=== PATIENT | female | born 1990 | race Caucasian/White ===

== ENCOUNTER 2017-09-17 11:58 | Emergency (ER) | payer OTHER ==
[2017-09-17 12:45] VITALS: O2SAT 100
--- NOTE | 2017-09-17 15:12 | RAD ---
HISTORY: midchest pain COMPARISON: No prior. TECHNIQUE: Chest PA and lateral FINDINGS: LUNGS: No active pulmonary disease. PLEURA: No significant pleural effusion identified. No pneumothorax apparent. CARDIOVASCULAR: Normal. OSSEOUS STRUCTURES: No significant abnormalities. VISUALIZED UPPER ABDOMEN: Normal. OTHER FINDINGS: None. IMPRESSION: No active disease.
--- NOTE | 2017-09-17 16:07 | C.PDOC ---
History Of Present Illness Anna Toribio is a 27 year old female, with no past medical history, who presents to the emergency department complaining of intermittent chest pain onset for the past x6 months. Patient states she attempted to visit the ER twice but left without being seen. She is not using control pills. She denies any fever, chills, nausea, vomit or shortness of breath. No further medical complaints. PMD: None provided. Time Seen by Provider: 09/17/17 13:12 Chief Complaint (Nursing): Chest Pain History Per: Patient History/Exam Limitations: no limitations Onset/Duration Of Symptoms: Days (x6 months), Intermittent Episodes Current Symptoms Are (Timing): Still Present Quality: "Pain" Associated Symptoms: denies: Dyspnea Past Medical History Reviewed: Historical Data, Nursing Documentation, Vital Signs Vital Signs: Last Vital Signs Temp 99.2 F 09/17/17 16:53 Pulse 88 09/17/17 16:53 Resp 20 09/17/17 16:53 BP 114/79 09/17/17 16:53 Pulse Ox 100 09/17/17 16:53 - Medical History PMH: No Chronic Diseases Surgical History: No Surg Hx Family History: States: Unknown Family Hx - Social History Hx Tobacco Use: Yes (light smoker <10 cigarettes) Hx Alcohol Use: No Hx Substance Use: No - Immunization History Hx Influenza Vaccination: No Review Of Systems Except As Marked, All Systems Reviewed And Found Negative. Constitutional: Negative for: Fever, Chills Cardiovascular: Positive for: Chest Pain (intermittent) Respiratory: Negative for: Shortness of Breath Gastrointestinal: Negative for: Nausea, Vomiting Physical Exam - Physical Exam Appears: No Acute Distress Skin: Normal Color, Warm, Dry Head: Atraumatic, Normacephalic Eye(s): bilateral: Normal Inspection Neck: Normal ROM Chest: Tenderness (to anterior chest with palpation) Cardiovascular: Rhythm Regular, No Murmur Respiratory: Normal Breath Sounds (clear b/l), No Wheezing Gastrointestinal/Abdominal: Normal Exam, Soft, No Tenderness Back: Normal Inspection, No CVA Tenderness, No Vertebral Tenderness, No Paraspinal Tenderness Extremity: Normal ROM, No Pedal Edema, No Deformity, No Swelling Neurological/Psych: Oriented x3 (awake) ED Course And Treatment ECG Rhythm: Sinus Tachycardia ECG Interpretation: No Acute Changes Rate From EC O2 Sat by Pulse Oximetry: 100 (RA) Pulse Ox Interpretation: Normal - Radiology CXR: Interpreted by Me CXR Interpretation: Yes: No Acute Disease Progress Note: Initial Plan: --EKG. --Drug screen, urine. --HCG, Qualitative Urine. --Chest two views (PA/LAT) [RAD]. --Urinalysis. On re-exam patient feels better, denies SOB, afebrile, no more thachycardia. Family at bedside, patient was instrcuted to follow up in Clinic and to return to ED immediately if she feels worse. Medical Decision Making Medical Decision Makin:10 Chest X-Ray FINDINGS: LUNGS: No active pulmonary disease. PLEURA: No significant pleural effusion identified. No pneumothorax apparent. CARDIOVASCULAR: Normal. OSSEOUS STRUCTURES: No significant abnormalities. VISUALIZED UPPER ABDOMEN: Normal. OTHER FINDINGS: None. IMPRESSION: No active disease. Disposition - Disposition Referrals: [facility] [Outside] Disposition: HOME/ ROUTINE Disposition Time: 16:50 Condition: STABLE Additional Instructions: Follow up in Clinic within 2-3 days. Return to ED if feel worse. Prescriptions: Ibuprofen [Motrin Tab] 600 mg PO Q8 #30 tab Instructions: Chest Wall Pain (ED) Forms: [facility] (Malay), Work Excuse - Clinical Impression Clinical Impression: Chest wall pain - Scribe Statement Gato Perez All medical record entries made by the Scribe were at my direction and personally dictated by me. I have reviewed the chart and agree that the record accurately reflects my personal performance of the history, physical exam, medical decision making, and the department course for this patient. I have also personally directed, reviewed, and agree with the discharge instructions and disposition.
[2017-09-17 16:24] LABS: SQUAMOUS EPITHIAL 1 /hpf (0-5); URINE BACTERIA RARE (<OCC); URINE BILIRUBIN NEGATIVE (NEGATIVE); URINE BLOOD NEGATIVE (NEGATIVE); URINE CLARITY Clear (Clear); URINE COLOR Yellow (YELLOW); URINE GLUCOSE (UA) NORMAL (Normal); URINE LEUKOCYTE ESTERASE NEG Leu/uL (Negative); URINE NITRATE NEGATIVE (NEGATIVE); URINE PROTEIN NEGATIVE (NEGATIVE)
[2017-09-17 16:26] LABS: BARBITURATES, UR NEGATIVE (NEGATIVE); BENZODIAZEPINES, UR NEGATIVE (NEGATIVE); OPIATES, UR NEGATIVE (NEGATIVE); PHENCYCLIDINE, UR NEGATIVE (NEGATIVE)
[2017-09-17 16:30] LABS: HCG,QUALITATIVE URINE NEGATIVE (NEGATIVE)
[2017-09-17 16:53] VITALS: BP 114/79; PULSE 88; RESP 20; TEMP 99.2
--- NOTE | 2017-09-19 23:35 | CARD ---
APPROVED REPORT EKG Measurement Heart [id number] <Conclusion> Sinus tachycardia Nonspecific T wave abnormality Abnormal ECG
== END 2017-09-17 17:12 | disposition home or self-care (01) ==
LOC: C.ER 11:58
DX: R07.89 Other chest pain (principal)

== ENCOUNTER 2017-09-21 13:58 | Inpatient (IN) | payer OTHER ==
[2017-09-21] MEDS ORDERED: Sodium Chloride 0.9% 1,000 ML IV ONE (15:28)
--- NOTE | 2017-09-21 15:58 | C.PDOC ---
History Of Present Illness 27 y/o female sent to ED from clinic for hemoglobin of 7.1. Patient was seen on 09/17 and did not have blood work done, mother called complaining that blood work was not done for patient and was told to go to clinic to have blood work done. Patient went yesterday to clinic and was told to come to ED for repeat blood work. Lexii states she occasionally feels dizzy and sob but is asymptomatic at ED. No other complaints at this time. Time Seen by Provider: 09/21/17 15:24 Chief Complaint (Nursing): Abnormal Labs History Per: Patient History/Exam Limitations: no limitations Onset/Duration Of Symptoms: Days Current Symptoms Are (Timing): Still Present Past Medical History Reviewed: Historical Data, Nursing Documentation, Vital Signs Vital Signs: Last Vital Signs Temp 98.8 F 09/21/17 15:09 Pulse 91 H 09/21/17 15:09 Resp 20 09/21/17 15:09 BP 113/70 09/21/17 15:09 Pulse Ox 100 09/21/17 18:23 - Medical History PMH: Anemia Surgical History: No Surg Hx Family History: States: No Known Family Hx - Social History Hx Tobacco Use: Yes (light smoker <10 cigarettes) Hx Alcohol Use: Yes Hx Substance Use: Yes (marijuana) - Immunization History Hx Tetanus Toxoid Vaccination: No Hx Influenza Vaccination: No Hx Pneumococcal Vaccination: No Review Of Systems Constitutional: Negative for: Fever, Chills Cardiovascular: Negative for: Chest Pain Respiratory: Negative for: Shortness of Breath Gastrointestinal: Negative for: Nausea, Vomiting Skin: Negative for: Rash Neurological: Negative for: Weakness, Numbness, Dizziness Physical Exam - Physical Exam Appears: Non-toxic, No Acute Distress Skin: Warm, Dry, No Rash Head: Atraumatic, Normacephalic Eye(s): bilateral: Normal Inspection Oral Mucosa: Moist Neck: Normal ROM, Supple Cardiovascular: Rhythm Regular Respiratory: Normal Breath Sounds, No Rales, No Rhonchi, No Wheezing Gastrointestinal/Abdominal: Soft, No Tenderness, No Guarding, No Rebound Extremity: Normal ROM, Capillary Refill (<2 seconds) Neurological/Psych: Oriented x3 ED Course And Treatment - Laboratory Results Result Diagrams: 09/21/17 16:26 09/21/17 16:26 Lab Interpretation: Normal Urine POC: Negative ECG: Interpreted By Me ECG Rhythm: Sinus Rhythm Rate From EC O2 Sat by Pulse Oximetry: 100 (RA) Pulse Ox Interpretation: Normal Progress Note: Patient refused rectal exam. Admitted in stable condition in no distress Reassessment Condition: Unchanged - Physician Consult Information Physician Contacted: Chucky Trinidad Outcome Of Conversation: admit Medical Decision Making Medical Decision Making: Patient sent from [facility] for symptomatic anemia Hgb 7.1 denies vaginal or rectal bleeding Consult with Dr Bailon ordered Disposition Discussed With Dr.: Chucky Trinidad Doctor Will See Patient In The: Hospital Counseled Patient/Family Regarding: Studies Performed - Disposition Disposition: HOSPITALIZED Disposition Time: 18:30 Condition: STABLE - POA Present On Arrival: None - Clinical Impression Clinical Impression: Anemia - PA / PENETRATION TESTER / Resident Statement MD/DO has reviewed & agrees with the documentation as recorded. - Scribe Statement The provider has reviewed the documentation as recorded by the Scribe Amy Aguilar All medical record entries made by the Scribe were at my direction and personally dictated by me. I have reviewed the chart and agree that the record accurately reflects my personal performance of the history, physical exam, medical decision making, and the department course for this patient. I have also personally directed, reviewed, and agree with the discharge instructions and disposition. Decision To Admit - Pt Status Changed To: Hospital Disposition Of: Inpatient - Admit Certification Admit to Inpatient:: After my assessment, the patient will require hospitalization for at least two midnights. This is because of the severity of symptoms shown, intensity of services needed, and/or the medical risk in this patient being treated as an outpatient. - InPatient: Physician Admission Certification: I certify that this patient requires 2 or more midnights of care for the following reason:: symptomatic Anemia - . Bed Request Type: Regular Admitting Physician: Chucky Trinidad Patient Diagnosis: Anemia
[2017-09-21] MEDS ORDERED: Sodium Chloride 0.9% 1,000 ML ONE (16:04)
[2017-09-21 16:36] LABS: BASO # 0.1 K/uL (0.0-0.2); BASO % 1.4 % (0.0-2.0); EOS # 0.1 K/uL (0.0-0.7); EOS % 1.3 % (0.0-4.0); HEMOGLOBIN 7.1 g/dL (11.0-16.0); LYMPH # 3.3 K/uL (1.0-4.3); LYMPH % 50.8 % (20.0-40.0); MEAN CELL VOLUME 67.2 fL (81.0-99.0); MEAN CORPUSCULAR HEMOGLOBIN 19.8 pg (27.0-31.0); MEAN CORPUSCULAR HGB CONC 29.5 g/dL (33.0-37.0); MEAN PLATELET VOLUME 10.3 fL (7.2-11.7); MONO # 0.3 K/uL (0.0-0.8); MONO % 4.7 % (0.0-10.0); NEUT # 2.7 K/uL (1.8-7.0); NEUT % 41.8 % (50.0-75.0); NRBC % 0.1 % (0.0-2.0); RBC 3.59 Mil/uL (3.80-5.20); RED CELL DISTRIBUTION WIDTH 19.1 % (11.5-14.5); WHITE BLOOD COUNT 6.6 K/uL (4.8-10.8)
[2017-09-21 17:12] LABS: PROTHROMBIN TIME 11.5 SECONDS (9.7-12.2)
[2017-09-21 17:22] LABS: ALBUMIN 4.1 g/dL (3.5-5.0); ALT/SGPT 26 U/L (9-52); AST/SGOT 26 U/L (14-36); BLOOD UREA NITROGEN 7 mg/dL (7-17); CALCIUM 8.5 mg/dl (8.6-10.4); GFR AFRICAN-AMERICAN > 60; GFR NON-AFRICAN AMERICAN > 60
[2017-09-21 17:39] LABS: SQUAMOUS EPITHIAL 1 /hpf (0-5); URINE BILIRUBIN NEGATIVE (NEGATIVE); URINE BLOOD NEGATIVE (NEGATIVE); URINE CLARITY Clear (Clear); URINE COLOR Yellow (YELLOW); URINE GLUCOSE (UA) NORMAL (Normal); URINE LEUKOCYTE ESTERASE NEG Leu/uL (Negative); URINE NITRATE NEGATIVE (NEGATIVE); URINE PROTEIN NEGATIVE (NEGATIVE)
[2017-09-21 17:51] LABS: HCG,QUALITATIVE URINE NEGATIVE (NEGATIVE)
--- NOTE | 2017-09-21 20:33 | CP.PCM.HP ---
History of Present Illness - History of Present Illness History of Present Illness: 27 y/o female sent to ED from clinic for hemoglobin of 7.1. Patient was seen on 09/17 and did not have blood work done, Patient went yesterday to clinic and was told to come to ED for repeat blood work. Lexii states she occasionally feels dizzy and sob but is asymptomatic at ED. No other complaints at this time. Present on Admission - Present on Admission Any Indicators Present on Admission: No Review of Systems - Review of Systems All systems: reviewed and no additional remarkable complaints except (FATIGUE AND TIREDNESS) Past Patient History - Past Social History Smoking Status: Light Smoker < 10 Cigarettes Daily - HEMATOLOGICAL/ONCOLOGICAL Hx Anemia: Yes - PSYCHIATRIC Hx Substance Use: Yes (marijuana) - SURGICAL HISTORY Hx Surgeries: No Meds Allergies/Adverse Reactions: Allergies Allergy/AdvReac Type Severity Reaction Status Date / Time No Known Allergies Allergy Verified 09/21/17 15:12 Physical Exam - Head Exam Head Exam: ATRAUMATIC, NORMAL INSPECTION, NORMOCEPHALIC - ENT Exam ENT Exam: Mucous Membranes Moist, Normal Exam - Neck Exam Neck exam: Positive for: Normal Inspection - Respiratory Exam Respiratory Exam: Clear to Auscultation Bilateral, NORMAL BREATHING PATTERN - Cardiovascular Exam Cardiovascular Exam: REGULAR RHYTHM - GI/Abdominal Exam GI & Abdominal Exam: Normal Bowel Sounds, Soft. absent: Tenderness - Rectal Exam Rectal Exam: Deferred - Extremities Exam Extremities exam: Positive for: normal inspection - Back Exam Back exam: NORMAL INSPECTION - Neurological Exam Neurological exam: Alert, CN II-XII Intact, Normal Gait, Oriented x3, Reflexes Normal - Skin Skin Exam: Pallor Results - Vital Signs Recent Vital Signs: Last Vital Signs Temp 98.8 F 09/21/17 15:09 Pulse 91 H 09/21/17 15:09 Resp 20 09/21/17 15:09 BP 113/70 09/21/17 15:09 Pulse Ox 100 09/21/17 18:57 - Labs Result Diagrams: 09/21/17 16:26 09/21/17 16:26 Labs: Laboratory Results - last 24 hr 09/21/17 09/21/17 09/21/17 16:26 16:26 16:26 WBC 6.6 RBC 3.59 L Hgb 7.1 L Hct 24.1 L MCV 67.2 L MCH 19.8 L MCHC 29.5 L RDW 19.1 H Plt Count 245 MPV 10.3 Neut % (Auto) 41.8 L Lymph % (Auto) 50.8 H [place] % (Auto) 4.7 Eos % (Auto) 1.3 Baso % (Auto) 1.4 Neut # 2.7 Lymph # 3.3 [place] # 0.3 Eos # 0.1 Baso # 0.1 PT 11.5 INR 1.0 Sodium 135 Potassium 4.3 Chloride 101 Carbon Dioxide 26 Anion Gap 12 BUN 7 Creatinine 0.7 Est GFR ( Amer) > 60 Est GFR (Non-Af Amer) > 60 Random Glucose 90 Calcium 8.5 L Total Bilirubin 0.8 AST 26 ALT 26 Alkaline Phosphatase 73 Total Protein 8.3 Albumin 4.1 Globulin 4.2 H Albumin/Globulin Ratio 1.0 Urine Color Urine Clarity Urine pH Ur Specific [place] Urine Protein Urine Glucose (UA) Urine Ketones Urine Blood Urine Nitrate Urine Bilirubin Urine Urobilinogen Ur Leukocyte Esterase Urine WBC (Auto) Urine RBC (Auto) Ur Squamous Epith Cells Urine HCG, Qual Blood Type Antibody Screen 09/21/17 09/21/17 16:26 17:27 WBC RBC Hgb Hct MCV MCH MCHC RDW Plt Count MPV Neut % (Auto) Lymph % (Auto) [place] % (Auto) Eos % (Auto) Baso % (Auto) Neut # Lymph # [place] # Eos # Baso # PT INR Sodium Potassium Chloride Carbon Dioxide Anion Gap BUN Creatinine Est GFR ( Amer) Est GFR (Non-Af Amer) Random Glucose Calcium Total Bilirubin AST ALT Alkaline Phosphatase Total Protein Albumin Globulin Albumin/Globulin Ratio Urine Color Yellow Urine Clarity Clear Urine pH 7.0 Ur Specific [place] 1.015 Urine Protein Negative Urine Glucose (UA) Normal Urine Ketones Negative Urine Blood Negative Urine Nitrate Negative Urine Bilirubin Negative Urine Urobilinogen 2.0 H Ur Leukocyte Esterase Neg Urine WBC (Auto) < 1 Urine RBC (Auto) < 1 Ur Squamous Epith Cells 1 Urine HCG, Qual Negative Blood Type B POSITIVE Antibody Screen Negative Assessment & Plan (1) Anemia Status: Acute Comment: ETIOLOGY TO BE DETERMINED (2) Chest wall pain Status: Acute
[2017-09-21 23:32] LABS: FERRITIN 4.9 ng/mL
[2017-09-22 00:03] LABS: FOLATE 10.6 ng/mL
[2017-09-22 05:04] LABS: BASO # 0.1 K/uL (0.0-0.2); BASO % 1.2 % (0.0-2.0); EOS # 0.1 K/uL (0.0-0.7); LYMPH # 2.8 K/uL (1.0-4.3); LYMPH % 49.4 % (20.0-40.0); MEAN CELL VOLUME 70.6 fL (81.0-99.0); MEAN CORPUSCULAR HEMOGLOBIN 21.3 pg (27.0-31.0); MEAN CORPUSCULAR HGB CONC 30.1 g/dL (33.0-37.0); MEAN PLATELET VOLUME 9.2 fL (7.2-11.7); MONO # 0.4 K/uL (0.0-0.8); MONO % 6.8 % (0.0-10.0); NEUT # 2.3 K/uL (1.8-7.0); NEUT % 40.6 % (50.0-75.0); NRBC % 0.1 % (0.0-2.0); RBC 3.78 Mil/uL (3.80-5.20); RED CELL DISTRIBUTION WIDTH 21.4 % (11.5-14.5); WHITE BLOOD COUNT 5.7 K/uL (4.8-10.8)
--- NOTE | 2017-09-22 12:37 | CARD ---
APPROVED REPORT EKG Measurement Heart [id number] <Conclusion> Normal sinus rhythm Possible Left atrial enlargement Borderline ECG
--- NOTE | 2017-09-22 13:22 | CP.PCM.CON ---
History of Present Illness - History of Present Illness History of Present Illness: 27 year old female with no past medical history, admitted with symptomatic anemia. The patient notes she has been more fatigued with intermittent episodes of dizziness. She underwent blood work with her PMD who found her to be anemic and told her to come to the hospital. In the ER she was found to have a hgb of 7.1. She is s/p 2U PRBC and notes to feeling better but still had an episode of dizziness this morning. She denies abnormal bleeding and bruising. She denies heavy periods. She does note to frequent episodes of chest pain for which she is supposed to have a stress test as an outpatient tomorrow. Past medical history: None Past surgical history: None Family history: Niece has leukemia Social history: Smokes marijuana Allergies: NKA Review of systems: All remaining review of systems including HEENT, cardiovascular, respiratory, gastrointestinal , genitourinary, musculoskeletal, dermatologic, neurologic, and psychiatric are negative unless mentioned in the HPI. Past Patient History - Past Medical History & Family History Past Medical History?: Yes - Past Social History Smoking Status: Light Smoker < 10 Cigarettes Daily - HEMATOLOGICAL/ONCOLOGICAL Hx Anemia: Yes - PSYCHIATRIC Hx Substance Use: Yes (marijuana) - SURGICAL HISTORY Hx Surgeries: No Meds Allergies/Adverse Reactions: Allergies Allergy/AdvReac Type Severity Reaction Status Date / Time No Known Allergies Allergy Verified 09/21/17 15:12 Physical Exam - Head Exam Head Exam: ATRAUMATIC - Eye Exam Eye Exam: Normal appearance - ENT Exam ENT Exam: Mucous Membranes Dry - Respiratory Exam Respiratory Exam: NORMAL BREATHING PATTERN - Cardiovascular Exam Cardiovascular Exam: +S1, +S2 - GI/Abdominal Exam GI & Abdominal Exam: Normal Bowel Sounds - Extremities Exam Extremities exam: Positive for: normal inspection - Neurological Exam Neurological exam: Oriented x3 - Psychiatric Exam Psychiatric exam: Normal Affect, Normal Mood - Skin Skin Exam: Warm Results - Vital Signs Recent Vital Signs: Last Vital Signs Temp 98.2 F 09/22/17 08:09 Pulse 78 09/22/17 08:09 Resp 18 09/22/17 08:09 BP 115/67 09/22/17 08:09 Pulse Ox 100 09/22/17 08:09 - Labs Result Diagrams: 09/22/17 04:59 09/21/17 16:26 Labs: Laboratory Results - last 24 hr 0109/21/17 09/21/17 16:26 16:26 16:26 WBC 6.6 RBC 3.59 L Hgb 7.1 L Hct 24.1 L MCV 67.2 L MCH 19.8 L MCHC 29.5 L RDW 19.1 H Plt Count 245 MPV 10.3 Neut % (Auto) 41.8 L Lymph % (Auto) 50.8 H [place] % (Auto) 4.7 Eos % (Auto) 1.3 Baso % (Auto) 1.4 Neut # 2.7 Lymph # 3.3 [place] # 0.3 Eos # 0.1 Baso # 0.1 Retic Count Sickle Cell Screen PT 11.5 INR 1.0 Sodium 135 Potassium 4.3 Chloride 101 Carbon Dioxide 26 Anion Gap 12 BUN 7 Creatinine 0.7 Est GFR ( Amer) > 60 Est GFR (Non-Af Amer) > 60 Random Glucose 90 Calcium 8.5 L Ferritin Total Bilirubin 0.8 AST 26 ALT 26 Alkaline Phosphatase 73 Total Protein 8.3 Albumin 4.1 Globulin 4.2 H Albumin/Globulin Ratio 1.0 Vitamin B12 Folate Urine Color Urine Clarity Urine pH Ur Specific [place] Urine Protein Urine Glucose (UA) Urine Ketones Urine Blood Urine Nitrate Urine Bilirubin Urine Urobilinogen Ur Leukocyte Esterase Urine WBC (Auto) Urine RBC (Auto) Ur Squamous Epith Cells Urine HCG, Qual Blood Type Blood Type Confirm Antibody Screen 09/21/17 09/21/17 09/21/17 16:26 17:27 22:27 WBC RBC Hgb Hct MCV MCH MCHC RDW Plt Count MPV Neut % (Auto) Lymph % (Auto) [place] % (Auto) Eos % (Auto) Baso % (Auto) Neut # Lymph # [place] # Eos # Baso # Retic Count Sickle Cell Screen Negative PT INR Sodium Potassium Chloride Carbon Dioxide Anion Gap BUN Creatinine Est GFR ( Amer) Est GFR (Non-Af Amer) Random Glucose Calcium Ferritin Total Bilirubin AST ALT Alkaline Phosphatase Total Protein Albumin Globulin Albumin/Globulin Ratio Vitamin B12 Folate Urine Color Yellow Urine Clarity Clear Urine pH 7.0 Ur Specific [place] 1.015 Urine Protein Negative Urine Glucose (UA) Normal Urine Ketones Negative Urine Blood Negative Urine Nitrate Negative Urine Bilirubin Negative Urine Urobilinogen 2.0 H Ur Leukocyte Esterase Neg Urine WBC (Auto) < 1 Urine RBC (Auto) < 1 Ur Squamous Epith Cells 1 Urine HCG, Qual Negative Blood Type B POSITIVE Blood Type Confirm B POSITIVE Antibody Screen Negative 09/21/17 09/21/17 09/22/17 22:27 22:41 04:59 WBC 5.7 RBC 3.78 L Hgb 8.0 L Hct 26.7 L MCV 70.6 L D MCH 21.3 L MCHC 30.1 L RDW 21.4 H Plt Count 200 MPV 9.2 Neut % (Auto) 40.6 L Lymph % (Auto) 49.4 H [place] % (Auto) 6.8 Eos % (Auto) 2.0 Baso % (Auto) 1.2 Neut # 2.3 Lymph # 2.8 [place] # 0.4 Eos # 0.1 Baso # 0.1 Retic Count 2.0 H Sickle Cell Screen PT INR Sodium Potassium Chloride Carbon Dioxide Anion Gap BUN Creatinine Est GFR ( Amer) Est GFR (Non-Af Amer) Random Glucose Calcium Ferritin 4.9 Total Bilirubin AST ALT Alkaline Phosphatase Total Protein Albumin Globulin Albumin/Globulin Ratio Vitamin B12 376 Folate 10.6 Urine Color Urine Clarity Urine pH Ur Specific [place] Urine Protein Urine Glucose (UA) Urine Ketones Urine Blood Urine Nitrate Urine Bilirubin Urine Urobilinogen Ur Leukocyte Esterase Urine WBC (Auto) Urine RBC (Auto) Ur Squamous Epith Cells Urine HCG, Qual Blood Type Blood Type Confirm Antibody Screen Assessment & Plan (1) Anemia Assessment and Plan: work up consistente with iron deficiency anemia; low ferritin s/p 2U PRBC, will transfuse 1 additional unit PRBC today will start IV ferrlecit denies heavy periods, f/u FOBT Thank you for this interesting consult. Status: Acute
[2017-09-22] MEDS ORDERED: Ferric Sodium Gluconat Complex 62.5 mg/5 ml Vial IVPB SCH ×2 (13:30→17:00)
--- NOTE | 2017-09-22 13:34 | CP.PCM.PN ---
Subjective - Date & Time of Evaluation Date of Evaluation: 09/22/17 Time of Evaluation: 13:33 - Subjective Subjective: S/P 2 PC , HG 8.0 WITH SYMPTOMS ONE MORE UNIT PC TODAY IV FERRICILT Objective - Vital Signs/Intake and Output Vital Signs (last 24 hours): Temp Pulse Resp BP Pulse Ox 98.2 F 78 18 115/67 100 09/22/17 08:09 09/22/17 08:09 09/22/17 08:09 09/22/17 08:09 09/22/17 08:09 - Medications Medications: Current Medications Acetaminophen (Tylenol 325mg Tab) 650 mg PO ONCE ONE Stop: 09/22/17 13:46 Diphenhydramine HCl (Benadryl) 25 mg PO ONCE ONE Stop: 09/22/17 13:46 Ferric Sodium Gluconate Complex (Ferrlecit) 125 mg IVPB DAILY MAT Stop: 09/29/17 13:31 - Labs Labs: 09/22/17 04:59 09/21/17 16:26 PT 11.5 SECONDS (9.7-12.2) 09/21/17 16:26 INR 1.0 09/21/17 16:26 Assessment and Plan (1) Anemia Status: Acute (2) Chest wall pain Status: Acute
--- NOTE | 2017-09-22 15:15 | CP.PCM.PN ---
Subjective - Date & Time of Evaluation Date of Evaluation: 09/22/17 Time of Evaluation: 15:13 - Subjective Subjective: PT SEEN WITH DR. MULLER THIS AFTERNOON ROUNDS. PENDING IRON AND TIBC RESULTS. PT STILL C/O DIZZINESS AND CRAVING ICE EVEN AFTER TRANSFUSION LAST NIGHT. PLAN IS TO ORDER ANOTHER UNIT PRBC FOR TONIGHT; FERRLICET IV TODAY. REPEAT CBC IN AM AND OK TO D/C HOME PER Amanda MULLER IF HGB IMPROVED. PT TO F/U WITH HIM IN THE OFFICE IN 1 WEEK; HE WILL MONITOR HER IRON AND HGB LEVELS AND GIVE IV INFUSION OUTPATIENT PRN. PT IN AGREEMENT WITH THIS PLAN. NO FURTHER ORDERS. Objective - Vital Signs/Intake and Output Vital Signs (last 24 hours): Temp Pulse Resp BP Pulse Ox 97.9 F 77 20 111/73 100 09/22/17 14:52 09/22/17 14:52 09/22/17 14:52 09/22/17 14:52 09/22/17 08:09 Intake and Output: 09/22/17 09/22/17 06:59 18:59 Intake Total 0 Balance 0 - Medications Medications: Current Medications Ferric Sodium Gluconate Complex (Ferrlecit) 125 mg IVPB DAILY MAT Stop: 09/30/17 17:01 - Labs Labs: 09/22/17 04:59 09/21/17 16:26 PT 11.5 SECONDS (9.7-12.2) 09/21/17 16:26 INR 1.0 09/21/17 16:26
[2017-09-22 15:22] LABS: IRON 28 ug/dL (37-170)
[2017-09-22 15:24] VITALS: RESP 20
[2017-09-22 15:27] LABS: TOTAL IRON BINDING CAPACITY 394 ug/dL (250-450)
[2017-09-22 15:29] LABS: % IRON SATURATION 7 (20-55)
--- NOTE | 2017-09-22 20:55 | CARD ---
APPROVED REPORT EKG Measurement Heart [id number] [place] [id number] <Conclusion> Normal sinus rhythm Normal ECG
[2017-09-23 00:17] VITALS: PULSE 73
[2017-09-23 08:06] VITALS: BP 117/66; TEMP 98.1; O2SAT 96
[2017-09-23] MEDS ORDERED: Ferric Sodium Gluconat Complex 125 MG in Sodium Chloride 0.9% 100 ML IVPB SCH (10:00)
[2017-09-23 10:17] LABS: BASO % 0.6 % (0.0-2.0); EOS # 0.1 K/uL (0.0-0.7); EOS % 0.9 % (0.0-4.0); LYMPH # 2.7 K/uL (1.0-4.3); LYMPH % 36.9 % (20.0-40.0); MEAN CORPUSCULAR HEMOGLOBIN 23.5 pg (27.0-31.0); MEAN CORPUSCULAR HGB CONC 31.9 g/dL (33.0-37.0); MEAN PLATELET VOLUME 10.1 fL (7.2-11.7); MONO # 0.4 K/uL (0.0-0.8); MONO % 5.7 % (0.0-10.0); NEUT # 4.1 K/uL (1.8-7.0); NEUT % 55.9 % (50.0-75.0); RBC 4.25 Mil/uL (3.80-5.20); RED CELL DISTRIBUTION WIDTH 23.7 % (11.5-14.5); WHITE BLOOD COUNT 7.4 K/uL (4.8-10.8)
[2017-09-23 10:20] LABS: MEAN CELL VOLUME 73.7 fL (81.0-99.0)
--- NOTE | 2017-09-23 13:29 | CP.PCM.DIS ---
Provider - Provider Date of Admission: 09/21/17 18:19 Attending physician: Chucky Trinidad MD Time Spent in preparation of Discharge (in minutes): 30 Diagnosis - Discharge Diagnosis (1) Anemia Status: Acute (2) Chest wall pain Status: Acute Hospital Course - Lab Results Lab Results: Most Recent Lab Values WBC 7.4 K/uL (4.8-10.8) 09/23/17 10:08 RBC 4.25 Mil/uL (3.80-5.20) 09/23/17 10:08 Hgb 10.0 g/dL (11.0-16.0) L D 09/23/17 10:08 Hct 31.3 % (34.0-47.0) L 09/23/17 10:08 MCV 73.7 fL (81.0-99.0) L D 09/23/17 10:08 MCH 23.5 pg (27.0-31.0) L 09/23/17 10:08 MCHC 31.9 g/dL (33.0-37.0) L 09/23/17 10:08 RDW 23.7 % (11.5-14.5) H 09/23/17 10:08 Plt Count 195 K/uL (130-400) 09/23/17 10:08 MPV 10.1 fL (7.2-11.7) 09/23/17 10:08 Neut % (Auto) 55.9 % (50.0-75.0) 09/23/17 10:08 Lymph % (Auto) 36.9 % (20.0-40.0) 09/23/17 10:08 Alfalfa % (Auto) 5.7 % (0.0-10.0) 09/23/17 10:08 Eos % (Auto) 0.9 % (0.0-4.0) 09/23/17 10:08 Baso % (Auto) 0.6 % (0.0-2.0) 09/23/17 10:08 Neut # 4.1 K/uL (1.8-7.0) 09/23/17 10:08 Lymph # 2.7 K/uL (1.0-4.3) 09/23/17 10:08 Alfalfa # 0.4 K/uL (0.0-0.8) 09/23/17 10:08 Eos # 0.1 K/uL (0.0-0.7) 09/23/17 10:08 Baso # 0.0 K/uL (0.0-0.2) 09/23/17 10:08 Retic Count 2.0 % (0.5-1.5) H 09/21/17 22:27 Sickle Cell Screen Negative (NEGATIVE) 09/21/17 22:27 PT 11.5 SECONDS (9.7-12.2) 09/21/17 16:26 INR 1.0 09/21/17 16:26 Sodium 135 mmol/L (132-148) 09/21/17 16:26 Potassium 4.3 mmol/L (3.6-5.2) 09/21/17 16:26 Chloride 101 mmol/L (98-107) 09/21/17 16:26 Carbon Dioxide 26 mmol/L (22-30) 09/21/17 16:26 Anion Gap 12 (10-20) 09/21/17 16:26 BUN 7 mg/dL (7-17) 09/21/17 16:26 Creatinine 0.7 mg/dL (0.7-1.2) 09/21/17 16:26 Est GFR ( Amer) > 60 09/21/17 16:26 Est GFR (Non-Af Amer) > 60 09/21/17 16:26 Random Glucose 90 mg/dL (65-105) 09/21/17 16:26 Calcium 8.5 mg/dl (8.6-10.4) L 09/21/17 16:26 Iron 28 ug/dL (37-170) L 09/22/17 14:47 TIBC 394 ug/dL (250-450) 09/22/17 14:47 % Saturation 7 (20-55) L 09/22/17 14:47 Ferritin 4.9 ng/mL 09/21/17 22:41 Total Bilirubin 0.8 mg/dL (0.2-1.3) 09/21/17 16:26 AST 26 U/L (14-36) 09/21/17 16:26 ALT 26 U/L (9-52) 09/21/17 16:26 Alkaline Phosphatase 73 U/L (38-126) 09/21/17 16:26 Total Protein 8.3 g/dL (6.3-8.3) 09/21/17 16:26 Albumin 4.1 g/dL (3.5-5.0) 09/21/17 16:26 Globulin 4.2 gm/dL (2.2-3.9) H 09/21/17 16:26 Albumin/Globulin Ratio 1.0 (1.0-2.1) 09/21/17 16:26 Vitamin B12 376 pg/mL (239-931) 09/21/17 22:41 Folate 10.6 ng/mL 09/21/17 22:41 Urine Color Yellow (YELLOW) 09/21/17 17:27 Urine Clarity Clear (Clear) 09/21/17 17: Urine pH 7.0 (5.0-8.0) 09/21/17 17:27 Ur Specific [place] 1.015 (1.003-1.030) 09/21/17 17:27 Urine Protein Negative mg/dL (NEGATIVE) 09/21/17 17:27 Urine Glucose (UA) Normal mg/dL (Normal) 09/21/17 17:27 Urine Ketones Negative mg/dL (NEGATIVE) 09/21/17 17:27 Urine Blood Negative (NEGATIVE) 09/21/17 17:27 Urine Nitrate Negative (NEGATIVE) 09/21/17 17: Urine Bilirubin Negative (NEGATIVE) 09/21/17 17:27 Urine Urobilinogen 2.0 mg/dL (0.2-1.0) H 09/21/17 17:27 Ur Leukocyte Esterase Neg Kleber/uL (Negative) 09/21/17 17:27 Urine WBC (Auto) < 1 /hpf (0-5) 09/21/17 17:27 Urine RBC (Auto) < 1 /hpf (0-3) 09/21/17 17:27 Ur Squamous Epith Cells 1 /hpf (0-5) 09/21/17 17:27 Urine HCG, Qual Negative (NEGATIVE) 09/21/17 17:27 Blood Type B POSITIVE 09/21/17 16:26 Blood Type Confirm B POSITIVE 09/21/17 16:26 Antibody Screen Negative 09/21/17 16:26 - Hospital Course Hospital Course: 27 y/o female sent to ED from clinic for hemoglobin of 7.1. Patient was seen on 09/17 and did not have blood work done, Patient went yesterday to clinic and was told to come to ED for repeat blood work. Lexii states she occasionally feels dizzy and sob but is asymptomatic at ED. No other complaints at this time. IRON/FERRITIN LEVELS V LOW ECHO PENDING PT RESPONDED WITH 2 PC TRANSFUSION LAST HG 10.2 PER HEM, D/C , OUT PT F/U Discharge Exam - Head Exam Head Exam: ATRAUMATIC Discharge Plan - Follow Up Plan Condition: STABLE Disposition: HOME/ ROUTINE Additional Instructions: -FOLLOW UP WITH DR. TRINIDAD IN THE OFFICE WITHIN 1 WEEK---CALL THE OFFICE FOR APPOINTMENT TIME. -FOLLOW UP WITH DR. MULLER ([facility] [employer]NER) IN THE OFFICE IN 1 WEEK (BY NEXT TUESDAY )---CALL THE OFFICE FOR APPOINTMENT TIME. -DR. MULLER WILL MONITOR YOUR IRON LEVELS FROM HIS OFFICE, AND IF YOUR LEVELS ARE LOW HE WILL BE ABLE TO GIVE YOU AN IV INFUSION OF PURE IRON FROM HIS OFFICE. -YOU MUST EAT WELL IN ORDER TO KEEP YOUR IRON LEVELS STABLE. SEE THE SHEET GIVEN TO YOU WITH IRON RICH FOOD CHOICES. -FOR FURTHER CONCERNS OR QUESTIONS, CONTACT DR. TRINIDAD OR DR. MULLER. Referrals: Chong Muller MD [Staff Provider] - Chucky Trinidad MD [Staff Provider] -
--- NOTE | 2017-09-23 14:15 | CP.PCM.PN ---
Subjective - Date & Time of Evaluation Date of Evaluation: 09/23/17 Time of Evaluation: 14:15 Objective - Vital Signs/Intake and Output Vital Signs (last 24 hours): Temp Pulse Resp BP Pulse Ox 98.1 F 73 20 117/66 96 09/23/17 08:05 09/23/17 08:05 09/23/17 08:05 09/23/17 08:05 09/23/17 08:05 Intake and Output: 09/23/17 09/23/17 06:59 18:59 Intake Total 1325 Balance 1325 - Medications Medications: Current Medications Ferric Sodium Gluconate Complex 125 mg/ Sodium Chloride 110 mls @ 110 mls/hr IVPB DAILY MAT Stop: 09/30/17 10:01 Last Admin: 09/23/17 10:26 Dose: 110 mls/hr - Labs Labs: 09/23/17 10:08 09/21/17 16:26 PT 11.5 SECONDS (9.7-12.2) 09/21/17 16:26 INR 1.0 09/21/17 16:26
--- NOTE | 2017-09-23 22:15 | CP.PCM.PN ---
Subjective - Date & Time of Evaluation Date of Evaluation: 09/23/17 Time of Evaluation: 12:00 - Subjective Subjective: Feeling better Objective - Vital Signs/Intake and Output Vital Signs (last 24 hours): Temp Pulse Resp BP Pulse Ox 98.1 F 73 20 117/66 96 09/23/17 08:05 09/23/17 08:05 09/23/17 08:05 09/23/17 08:05 09/23/17 08:05 - Labs Labs: 09/23/17 10:08 09/21/17 16:26 PT 11.5 SECONDS (9.7-12.2) 09/21/17 16:26 INR 1.0 09/21/17 16:26 - Head Exam Head Exam: ATRAUMATIC - Eye Exam Eye Exam: Normal appearance - ENT Exam ENT Exam: Mucous Membranes Dry - Respiratory Exam Respiratory Exam: NORMAL BREATHING PATTERN - Cardiovascular Exam Cardiovascular Exam: +S1, +S2 - GI/Abdominal Exam GI & Abdominal Exam: Normal Bowel Sounds - Extremities Exam Extremities Exam: Normal Inspection Assessment and Plan (1) Anemia Assessment & Plan: iron deficiency anemia s/p PRBC and iron outpatient f/u Status: Acute
--- NOTE | 2017-09-24 20:00 | CARD ---
APPROVED REPORT EXAM: Two-dimensional and M-mode echocardiogram with Doppler and color Doppler. Other Information Quality : GoodRhythm : INDICATION Chest Pain 2D DIMENSIONS IVSd1.3 (0.7-1.1cm)LVDd4.6 (3.9-5.9cm) PWd1.2 (0.7-1.1cm)LVDs3.2 (2.5-4.0cm) FS (%) 28.7 %LVEF (%)55.4 (>50%) M-Mode DIMENSIONS Left Atrium (MM)3.81 (2.5-4.0cm)IVSd0.72 (0.7-1.1cm) Aortic Root2.80 (2.2-3.7cm)LVDd5.37 (4.0-5.6cm) Aortic Cusp Exc.1.92 (1.5-2.0cm)PWd1.33 (0.7-1.1cm) FS (%) 33 %LVDs3.61 (2.0-3.8cm) LVEF (%)61 (>50%) Mitral Valve MV E Hsayrbrs750.0cm/sMV A Silgibys48.7cm/sE/A ratio1.6 TDI E/Lateral E'0.0E/Medial E'0.0 Tricuspid Valve TR Peak Dmkgjsve025uq/sTR Peak Gr.[id number] LEFT VENTRICLE The left ventricle is normal size. There is normal left ventricular wall thickness. Left ventricle systolic function is normal. The Ejection Fraction is 55-60%. There is normal LV segmental wall motion. The left ventricular diastolic function is normal. RIGHT VENTRICLE The right ventricle is normal size. There is normal right ventricular wall thickness. The right ventricular systolic function is normal. ATRIA The left atrium size is normal. The right atrium size is normal. The interatrial septum is intact with no evidence for an atrial septal defect. AORTIC VALVE The aortic valve is normal in structure. No aortic regurgitation is present. There is no aortic valvular stenosis. There is no aortic valvular vegetation. MITRAL VALVE The mitral valve is normal in structure. There is no evidence of mitral valve prolapse. There is no mitral valve stenosis. Mitral regurgitation is trace. TRICUSPID VALVE The tricuspid valve is normal in structure. There is trace tricuspid regurgitation. Right ventricular systolic pressure is estimated at less than 30 mmHg. There is no pulmonary hypertension. PULMONIC VALVE The pulmonic valve is not well visualized. There is trace pulmonic valvular regurgitation. GREAT VESSELS The aortic root is normal in size. PERICARDIAL EFFUSION There is no significant pericardial effusion. <Conclusion> Left ventricle systolic function is normal. The Ejection Fraction is 55-60%. No aortic regurgitation is present. Mitral regurgitation is trace. There is trace tricuspid regurgitation. There is no pulmonary hypertension. There is trace pulmonic valvular regurgitation.
== END 2017-09-23 17:18 | disposition home or self-care (01) | DRG 395 ==
LOC: C.ER 13:58 → C.9E 18:19 → C.5S 09-22 06:35
PROVIDERS: ADMIT Internal Medicine Cardiovascular Disease; ATTEND Internal Medicine Cardiovascular Disease
PROC: 30233N1 Transfusion of Nonautologous Red Blood Cells into Peripheral Vein, Percutaneous Approach (ICD-10-PCS; principal; 2017-09-22)
DX: D50.9 Iron deficiency anemia, unspecified (principal); F17.210 Nicotine dependence, cigarettes, uncomplicated; R07.89 Other chest pain

== ENCOUNTER 2017-11-28 10:13 | Emergency (ER) | payer MEDICAID, OTHER ==
[2017-11-28 10:27] VITALS: BP 108/72; PULSE 96; RESP 16; TEMP 98.8; O2SAT 98
--- NOTE | 2017-11-28 10:40 | C.PDOC ---
History Of Present Illness 27 y/o female presents to ED with complaints of bilateral low back pain for 3 days that worsens with ambulation. She has tried taking/using Naproxen, Tylenol , Ibuprofen and Bengay without improvement. Patient also reports mild cough from URI which is improving. She denies fever, chest pain, SOB, abdominal pain , dtsuria/hematuria, nausea/vomiting/diarrhea, radiation of pain. Time Seen by Provider: 11/28/17 10:26 Chief Complaint (Nursing): Back Pain History Per: Patient History/Exam Limitations: no limitations Onset/Duration Of Symptoms: Days Current Symptoms Are (Timing): Still Present Severity: Moderate Past Medical History Reviewed: Historical Data, Nursing Documentation, Vital Signs Vital Signs: Last Vital Signs Temp 98.8 F 11/28/17 10:24 Pulse 96 H 11/28/17 10:24 Resp 16 11/28/17 10:24 BP 108/72 11/28/17 10:24 Pulse Ox 98 11/28/17 12:20 - Medical History PMH: Anemia Surgical History: No Surg Hx - [facility] Procedures TRANSFUSE NONAUT RED BLOOD CELLS IN PERIPH VEIN, PERC (09/21/17) Family History: States: No Known Family Hx - Social History Hx Tobacco Use: Yes (light smoker <10 cigarettes) Hx Alcohol Use: No Hx Substance Use: Yes (marijuana) - Immunization History Hx Tetanus Toxoid Vaccination: No Hx Influenza Vaccination: No Hx Pneumococcal Vaccination: No Review Of Systems Except As Marked, All Systems Reviewed And Found Negative. Constitutional: Negative for: Fever Cardiovascular: Negative for: Chest Pain Respiratory: Positive for: Cough (mild). Negative for: Shortness of Breath Gastrointestinal: Negative for: Nausea, Vomiting, Abdominal Pain, Diarrhea Genitourinary: Negative for: Dysuria, Hematuria Musculoskeletal: Positive for: Back Pain Neurological: Negative for: Weakness, Numbness Physical Exam - Physical Exam Appears: Well, Non-toxic, Other (In mild pain ) Skin: Warm, Dry, No Rash Eye(s): bilateral: Normal Inspection Oral Mucosa: Moist Neck: Supple Cardiovascular: Rhythm Regular Respiratory: Normal Breath Sounds, No Rales, No Rhonchi, No Wheezing Back: No CVA Tenderness, No Vertebral Tenderness, Paraspinal Tenderness (lumbar B/L, approx L4-L5 level) Neurological/Psych: Oriented x3, Normal Sensation Gait: Steady ED Course And Treatment O2 Sat by Pulse Oximetry: 98 (RA) Pulse Ox Interpretation: Normal - Radiology CXR: Interpreted by Me, Viewed By Me CXR Interpretation: Yes: No Acute Disease, Other (no effusions ). No: Infiltrates - Other Rad LS Spine Xray X-Ray: Interpreted by Me, Viewed By Me (no fractures/listhesis) Progress Note: UA, Upreg, CXR and LS spine Xrays ordered and reviewed. Patient given PO Valium, PO Naprosyn (refused IM Toradol). Reevaluation Time: 12:15 Reassessment Condition: Improved (On reassessment, patient states her pain has improved and she feels better. She is ambulating normally in ED. Xrays and UA/ Upreg unremarkable. Suspect musculoskeletal pain - Rxs for Naprosyn and Valium given. Patient instructed to follow up with PMD/clinic in 1-2 days, and undertands she should return to ED if symptoms worsen.) Disposition Counseled Patient/Family Regarding: Studies Performed, Diagnosis, Need For Followup, Rx Given - Disposition Referrals: [facility] [Outside] Disposition: HOME/ ROUTINE Disposition Time: 12:15 Condition: STABLE Additional Instructions: FOLLOW UP WITH YOUR DOCTOR/CLINIC IN 1-2 DAYS USE MEDICATIONS NEEDED RETURN TO ER IF SYMPTOMS WORSEN Prescriptions: Diazepam [Valium] 2 mg PO BID PRN #12 tablet PRN Reason: musle spasm Naproxen [Naprosyn] 1 tab PO BID PRN #25 tab PRN Reason: Pain Instructions: Low Back Pain in Adults Forms: [facility] (Latvian), Work Excuse Print Language: SERBIAN - Clinical Impression Clinical Impression: Low back pain - Scribe Statement The provider has reviewed the documentation as recorded by the Haseebibraúl Aguilar All medical record entries made by the Haseebibe were at my direction and personally dictated by me. I have reviewed the chart and agree that the record accurately reflects my personal performance of the history, physical exam, medical decision making, and the department course for this patient. I have also personally directed, reviewed, and agree with the discharge instructions and disposition.
[2017-11-28 11:16] LABS: HCG,QUALITATIVE URINE NEGATIVE (NEGATIVE)
[2017-11-28] MEDS ORDERED: Naproxen 550 mg Tab PO STA (11:20)
[2017-11-28] MEDS ORDERED: Naproxen 550 mg Tab PO ONE (11:25)
[2017-11-28 11:28] LABS: SQUAMOUS EPITHIAL 7 /hpf (0-5); URINE BACTERIA RARE (<OCC); URINE BILIRUBIN 1+ (NEGATIVE); URINE BLOOD NEGATIVE (NEGATIVE); URINE CLARITY Hazy (Clear); URINE GLUCOSE (UA) NORMAL (Normal); URINE LEUKOCYTE ESTERASE NEG Leu/uL (Negative); URINE PROTEIN 2+ mg/dL (NEGATIVE)
[2017-11-28 11:30] LABS: URINE COLOR YELLOW (YELLOW)
--- NOTE | 2017-11-28 11:51 | RAD ---
Chest x-ray two views History: Cough. Comparison: None available. Findings: Mild venous congestion. Prominent bibasilar breast shadows. Heart size preserved. Impression: Mild venous congestion. Prominent bibasilar breast shadows. Heart size preserved.
--- NOTE | 2017-11-28 12:24 | RAD ---
PROCEDURE: Radiographs of the Lumbar Spine. HISTORY: LOW BACK PAIN COMPARISON: No prior. FINDINGS: BONES: Normal alignment. No listhesis. No fracture. DISC SPACES: Unremarkable. OTHER FINDINGS: None. IMPRESSION: No acute fractures.
== END 2017-11-28 12:27 | disposition home or self-care (01) ==
LOC: C.ER 10:13
DX: M54.5 Low back pain (principal)